=== PATIENT | female | born 1980 | race Caucasian/White ===

== ENCOUNTER 2018-03-14 07:00 | Day surgery (SDC) | payer BC ==
[~2018-03-14] VITALS: Ht 160 cm; Wt 89.4 kg
[2018-03-14] MEDS ORDERED: LACTATED RINGERS 1,000 ML IV SCH (07:47)
[2018-03-14] MEDS ORDERED: LAMO300T2 PO (07:57)
[2018-03-14 08:02] LABS: HCG UR SG 1.018 (1.003-1.030)
[2018-03-14 08:13] VITALS: BP 117/81
[2018-03-14 08:31] LABS: BASOPHILS # (AUTO) 0.03 x10^3/uL (0-0.1); BASOPHILS % (AUTO) 0 % (0-1); EOSINOPHILS # (AUTO) 0.11 x10^3/uL (0-0.4); EOSINOPHILS % (AUTO) 1 % (1-7); LYMPHOCYTES # (AUTO) 1.78 x10^3/uL (1-3.4); LYMPHOCYTES % (AUTO) 23 % (22-44); MD NO; MEAN CORPUSCULAR HEMOGLOBIN 30.9 pg (27.0-34.8); MEAN CORPUSCULAR HGB CONC 33.7 g/dL (32.4-35.8); MEAN CORPUSCULAR VOLUME 91.6 fL (80-100); MEAN PLATELET VOLUME 7.1 fL (7.4-10.4); MONOCYTES # (AUTO) 0.39 x10^3/uL (0.2-0.8); MONOCYTES % (AUTO) 5 % (2-9); NEUTROPHILS % (AUTO) 71 % (42-75); PLATELET COUNT 388 x10^3/uL (130-400); RED BLOOD COUNT 4.23 x10^6/uL (3.82-5.3); RED CELL DISTRIBUTION WIDTH 13.5 % (9.6-15.2)
[2018-03-14 08:39] LABS: ANION GAP 8 mmol/L (5-15); CALCIUM 9.3 mg/dL (8.5-10.1); CHLORIDE 107 mmol/L (98-107); CREATININE 0.82 mg/dL (0.55-1.02)
[2018-03-14] MEDS ORDERED: FENTANYL PF 250 MCG/5ML ONE (09:44)
[2018-03-14] MEDS ORDERED: MIDAZOLAM 1 MG/ML, 2ML ONE (09:44)
[2018-03-14] MEDS ORDERED: LIDOCAINE/PF 1%, 30ML ONE (10:01)
[2018-03-14] MEDS ORDERED: EPINEPHRINE 1 MG/ML, 1ML ONE (10:01)
[2018-03-14] MEDS ORDERED: COCAINE TOPICAL SOLN 4%, 4ML ONE (10:01)
[2018-03-14] MEDS ORDERED: OXYMETAZOLINE NASAL SPRAY 0.05%, 15ML ONE (10:01)
[2018-03-14] MEDS ORDERED: MUPIROCIN OINT 2%, 22GM ONE (10:01)
[2018-03-14] MEDS ORDERED: OXYMETAZOLINE NASAL SPRAY 0.05%, 15ML NAS ONE (11:07)
[2018-03-14] MEDS ORDERED: COCAINE TOPICAL SOLN 4%, 4ML TP ONE (11:07)
[2018-03-14] MEDS ORDERED: LIDOCAINE 1%, 20ML INFIL ONE (11:08)
[2018-03-14] MEDS ORDERED: EPINEPHRINE 1 MG/ML, 1ML INFIL ONE (11:09)
[2018-03-14] MEDS ORDERED: MUPIROCIN OINT 2%, 22GM TP ONE (11:10)
[2018-03-14] MEDS ORDERED: LABETALOL 5MG/ML, 20ML IV PRN (11:30)
[2018-03-14] MEDS ORDERED: OXYcodone 5 MG/5 ML ORAL.SOL UDC PO PRN (11:30)
[2018-03-14] MEDS ORDERED: ONDANSETRON ODT 8 MG PO PRN (11:30)
[2018-03-14] MEDS ORDERED: hydrALAzine 20 MG/ML, 1ML IV PRN (11:30)
[2018-03-14] MEDS ORDERED: MIDAZOLAM 1 MG/ML, 2ML IV PRN (11:30)
[2018-03-14] MEDS ORDERED: FENTANYL PF 100 MCG/2ML IV PRN (11:30)
[2018-03-14] MEDS ORDERED: ACETAMINOPHEN 325 MG TABLET PO PRN (11:30)
[2018-03-14] MEDS ORDERED: EPHEDRINE 50 MG/ML, 1ML IVPush PRN (11:30)
[2018-03-14] MEDS ORDERED: PROMETHAZINE 12.5 MG SUPP PR PRN (11:30)
[2018-03-14] MEDS ORDERED: MORPHINE SULFATE 4 MG/ML, 1ML IVPush PRN (11:30)
[2018-03-14] MEDS ORDERED: MEPERIDINE/PF 25MG/0.5ML IVPush PRN (11:30)
[2018-03-14] MEDS ORDERED: PROMETHAZINE 25 MG/ML, 1ML IV PRN (11:30)
[2018-03-14] MEDS ORDERED: DIPHENHYDRAMINE 50 MG/ML, 1ML IM PRN (11:30)
[2018-03-14] MEDS ORDERED: EPHEDRINE 50 MG/ML, 1ML IM PRN (11:30)
[2018-03-14] MEDS ORDERED: PROPOFOL 10 MG/ML, 20ML ONE (12:07)
[2018-03-14] MEDS ORDERED: ONDANSETRON 2MG/ML, 2ML ONE (12:07)
[2018-03-14] MEDS ORDERED: DEXAMETHASONE 4 MG/ML, 1ML ONE (12:07)
[2018-03-14] MEDS ORDERED: SUCCINYLCHOLINE 20 MG/ML, 10ML ONE (12:07)
[2018-03-14] MEDS ORDERED: ROCURONIUM 10MG/ML,5ML ONE (12:07)
[2018-03-14] MEDS ORDERED: ACETAMINOPHEN 650 MG/20.3 ML UDC ONE (12:28)
[2018-03-14] MEDS ORDERED: OXYcodone 5 MG/5 ML ORAL.SOL UDC ONE (12:28)
== END 2018-03-14 14:10 | disposition home or self-care (01) ==
LOC: OUT 07:00
PROVIDERS: ATTEND Otolaryngology Facial Plastic Surgery
DX: J34.2 Deviated nasal septum (principal); J32.0 Chronic maxillary sinusitis; J34.3 Hypertrophy of nasal turbinates; J45.909 Unspecified asthma, uncomplicated; Z88.2 Allergy status to sulfonamides; Z98.890 Other specified postprocedural states; Z79.899 Other long term (current) drug therapy
CPT/HCPCS: 30130; 30520; 31256; 36415; 71045; 80048; 81025; 85025; 93005; J0171; J0330; J1100; J2250; J2405; J2704; J3010; J3490; J7120